=== PATIENT | female | born 1995 | race Caucasian/White ===

== ENCOUNTER 2017-11-02 21:59 | Inpatient (IN) | payer BC ==
[~2017-11-02] VITALS: Ht 160 cm; Wt 55.1 kg
[2017-11-02] MEDS ORDERED: REMICADE V100 MG/VIA IV (22:06)
[2017-11-02] MEDS ORDERED: OTREXUP15 MG/0.4 IM (22:07)
[2017-11-02 22:57] LABS: COLLECTION METHOD CLEAN CATCH
[2017-11-02 22:59] LABS: BASO % 0.3 % (0.0-2.0); EOS % 0.2 % (0-4.0); GRAN # 11.5 (1.4-6.5); GRAN % 83.4 % (42.2-75.2); HEMATOCRIT 45.2 % (37.0-47.0); HEMOGLOBIN 15.2 g/dl (12.5-16.0); LYMPH # 1.8 (1.2-3.4); LYMPH % 13.3 % (20.0-51.0); MEAN CELL VOLUME 91 fl (80.0-100.0); MEAN CORPUSCULAR HEMOGLOBIN 31 pg (27.0-31.0); MEAN CORPUSCULAR HGB CONC 34 g/dl (33.0-37.0); MEAN PLATELET VOLUME 8.7 fl (7.4-10.4); MONO # 0.3 (0.1-0.6); MONO % 2.4 % (1.7-9.3); PLATELET COUNT 386 K/mm3 (130-400); RED BLOOD COUNT 4.97 M/mm3 (4.10-5.30); REDCELL DISTRIBUTION WIDTH-CV 12.6 % (11.5-14.5)
[2017-11-02 23:04] LABS: MUCOUS Present /lpf; PH 5 (5-8); URINE APPEARANCE Hazy; URINE BACTERIA None Seen /hpf; URINE BILIRUBIN Negative (NEGATIVE); URINE BLOOD Negative (NEGATIVE); URINE COLOR Amber; URINE GLUCOSE Negative (NEGATIVE); URINE KETONE 2+ (NEGATIVE); URINE LEUKOCYTE ESTERASE 1+ (NEGATIVE); URINE NITRATE Negative (NEGATIVE); URINE PROTEIN(semi-quant) 2+ (NEGATIVE)
[2017-11-02 23:11] LABS: ALANINE AMINOTRANSFERASE 30 U/L (9-52); ALKALINE PHOSPHATASE 62 U/L (50-136); ANION GAP 15 mmol/L (7-16); AST,SGOT 27 U/L (15-37); BLOOD UREA NITROGEN 11 mg/dL (7-17); CALCIUM 10.1 mg/dL (8.4-10.2); CARBON DIOXIDE 24 mmol/L (22-30); CHLORIDE 104 mmol/L (98-107); CREATININE, serum 0.69 mg/dL (0.52-1.25); GLUCOSE 110 mg/dL (74-106); POTASSIUM 4.4 mmol/L (3.4-5.0); SODIUM 143 mmol/L (137-145); TOTAL PROTEIN 9.4 gm/dL (6.4-8.2)
[2017-11-02 23:17] LABS: C-REACTIVE PROTEIN < 0.5 mg/dL (0.0-0.9)
[2017-11-03] MEDS ORDERED: DEPO-PROVE400 MG/1 M IM (01:16)
[2017-11-03 01:29] VITALS: BP 123/78; PULSE 102; TEMP 97.3
[2017-11-03 08:00] VITALS: BP 111/82; PULSE 87; TEMP 97.7
[2017-11-03 13:00] VITALS: BP 106/88; PULSE 77; TEMP 98.8
[2017-11-03 15:41] VITALS: BP 109/56; PULSE 93; TEMP 98.2
[2017-11-03 19:50] VITALS: BP 118/56; PULSE 77; TEMP 98.7
[2017-11-04] VITALS (7 sets, daily range): BP systolic 107–127; BP diastolic 45–64; PULSE 72–94; TEMP 97.7–98.7
[2017-11-04 07:27] LABS: BASO % 0.2 % (0.0-2.0); GRAN # 3.4 (1.4-6.5); GRAN % 67.3 % (42.2-75.2); LYMPH # 1.5 (1.2-3.4); LYMPH % 29.3 % (20.0-51.0); MEAN CELL VOLUME 94 fl (80.0-100.0); MEAN CORPUSCULAR HGB CONC 33 g/dl (33.0-37.0); MEAN PLATELET VOLUME 9.4 fl (7.4-10.4); MONO # 0.1 (0.1-0.6); MONO % 2.8 % (1.7-9.3); RED BLOOD COUNT 3.63 M/mm3 (4.10-5.30); REDCELL DISTRIBUTION WIDTH-CV 12.9 % (11.5-14.5)
[2017-11-04 07:34] LABS: HEMOGLOBIN 11.2 g/dl (12.5-16.0); MEAN CORPUSCULAR HEMOGLOBIN 31 pg (27.0-31.0)
[2017-11-04 07:35] LABS: PLATELET COUNT 211 K/mm3 (130-400)
[2017-11-04 07:41] LABS: CREATININE, serum 0.6 mg/dL (0.52-1.25); POTASSIUM 3.3 mmol/L (3.4-5.0)
[2017-11-05 04:13] VITALS: BP 126/50; PULSE 72; TEMP 98.1
[2017-11-05 08:43] VITALS: BP 115/65; PULSE 58; TEMP 98.7
[2017-11-05 11:49] VITALS: BP 114/56; PULSE 83; TEMP 98.5
[2017-11-05 16:16] VITALS: BP 124/67; PULSE 99; TEMP 97.9
[2017-11-05 20:38] VITALS: BP 117/76; PULSE 78; TEMP 98.7
[2017-11-06] VITALS (8 sets, daily range): BP systolic 113–130; BP diastolic 54–76; PULSE 55–87; TEMP 98.1–99.1
[2017-11-07 06:09] VITALS: BP 114/69; PULSE 60; TEMP 98.3
[2017-11-07 06:57] LABS: HEMATOCRIT 33.3 % (37.0-47.0); HEMOGLOBIN 11.2 g/dl (12.5-16.0)
[2017-11-07 07:04] LABS: CALCIUM 8.2 mg/dL (8.4-10.2); CREATININE, serum 0.65 mg/dL (0.52-1.25)
[2017-11-07 07:22] LABS: POTASSIUM 2.7 mmol/L (3.4-5.0)
[2017-11-07 08:33] VITALS: BP 123/71; PULSE 63; TEMP 98.8
[2017-11-07 12:56] VITALS: BP 115/60; PULSE 90; TEMP 99.3
[2017-11-07 17:00] VITALS: BP 126/62; PULSE 81; TEMP 97.1
[2017-11-07 19:10] VITALS: BP 124/64; PULSE 85; TEMP 98.5
[2017-11-08 00:02] VITALS: BP 111/65; PULSE 71; TEMP 98.7
[2017-11-08 03:17] VITALS: BP 122/67; PULSE 66; TEMP 98.6
[2017-11-08 06:45] LABS: HEMATOCRIT 34.3 % (37.0-47.0); HEMOGLOBIN 11.5 g/dl (12.5-16.0)
[2017-11-08 07:14] LABS: ANION GAP 6 mmol/L (7-16); CALCIUM 8.4 mg/dL (8.4-10.2); CARBON DIOXIDE 30 mmol/L (22-30); CHLORIDE 103 mmol/L (98-107); CREATININE, serum 0.67 mg/dL (0.52-1.25); GLUCOSE 89 mg/dL (74-106); POTASSIUM 3.8 mmol/L (3.4-5.0); SODIUM 138 mmol/L (137-145)
[2017-11-08 07:19] LABS: BLOOD UREA NITROGEN < 2 mg/dL (7-17)
[2017-11-08 08:06] VITALS: BP 116/72; PULSE 56; TEMP 98.9
[2017-11-09 02:50] VITALS: BP 103/46; PULSE 75; TEMP 98.4
[2017-11-09 06:01] VITALS: BP 111/52; PULSE 70; TEMP 98.3
[2017-11-09 07:05] LABS: HEMATOCRIT 34.3 % (37.0-47.0); HEMOGLOBIN 11.4 g/dl (12.5-16.0)
[2017-11-09 07:19] LABS: CALCIUM 8.1 mg/dL (8.4-10.2); CREATININE, serum 0.58 mg/dL (0.52-1.25); POTASSIUM 3.5 mmol/L (3.4-5.0)
[2017-11-09 10:09] VITALS: BP 114/59; PULSE 73; TEMP 97.9
[2017-11-09 13:25] VITALS: BP 132/69; PULSE 84; TEMP 98.2
[2017-11-09 17:48] VITALS: BP 114/61; PULSE 71; TEMP 98.6
[2017-11-09 20:59] VITALS: BP 106/45; PULSE 92; TEMP 98
[2017-11-10 02:04] VITALS: BP 105/51; PULSE 68; TEMP 98.3
[2017-11-10 05:14] VITALS: BP 114/54; PULSE 70; TEMP 99.1
[2017-11-10 10:41] VITALS: BP 119/58; PULSE 83; TEMP 98.8
== END 2017-11-10 12:30 | disposition home or self-care (01) | DRG 330 ==
LOC: COL.ER 21:59 → MEDICAL 11-03 00:31 → SURG 11-08 12:45
PROVIDERS: Emergency Medicine; Surgery
PROC: 0DNM4ZZ Release Descending Colon, Percutaneous Endoscopic Approach (ICD-10-PCS; 2017-11-08)
PROC: 0DNB4ZZ Release Ileum, Percutaneous Endoscopic Approach (ICD-10-PCS; 2017-11-08)
PROC: 8E0W4CZ Robotic Assisted Procedure of Trunk Region, Percutaneous Endoscopic Approach (ICD-10-PCS; 2017-11-08)
PROC: 0DBH4ZZ Excision of Cecum, Percutaneous Endoscopic Approach (ICD-10-PCS; principal; 2017-11-08 09:30)
PROC: 0DBB4ZZ Excision of Ileum, Percutaneous Endoscopic Approach (ICD-10-PCS; 2017-11-08 09:30)
DX: K56.51 Intestinal adhesions [bands], with partial obstruction (principal); K50.90 Crohn's disease, unspecified, without complications; T81.52 Obstruction due to foreign body accidentally left in body following procedure; Y73.0 Diagnostic and monitoring gastroenterology and urology devices associated with adverse incidents
CPT/HCPCS: A4314; J0696; J1100; J1170; J1650; J1720; J1885; J1956; J2250; J2405; J2704; J3010; J7030; J7050; J7120; Q9967

== ENCOUNTER 2018-01-31 08:16 | Outpatient (CLI) | payer BC ==
[~2018-01-31] VITALS: Ht 160 cm; Wt 56.5 kg
[~2018-01-31 08:16] MED LIST: DEPO-PROVE400 MG/1 M IM; OTREXUP15 MG/0.4 IM; REMICADE V100 MG/VIA IV
[2018-01-31 09:15] LABS: HEMOGLOBIN 11.8 g/dl (12.5-16.0); MEAN CELL VOLUME 88 fl (80.0-100.0); MEAN CORPUSCULAR HEMOGLOBIN 28 pg (27.0-31.0); MEAN CORPUSCULAR HGB CONC 32 g/dl (33.0-37.0); MEAN PLATELET VOLUME 9.2 fl (7.4-10.4); PLATELET COUNT 308 K/mm3 (130-400); REDCELL DISTRIBUTION WIDTH-CV 12.2 % (11.5-14.5)
[2018-01-31 09:30] LABS: BILIRUBIN,TOTAL 0.2 mg/dL (0.0-1.0); CALCIUM 9.1 mg/dL (8.4-10.2); CREATININE, serum 0.64 mg/dL (0.52-1.25); POTASSIUM 4.2 mmol/L (3.4-5.0); TOTAL PROTEIN 8.3 gm/dL (6.4-8.2)
[2018-01-31 15:24] VITALS: BP 108/52; PULSE 83; TEMP 98
[2018-01-31 16:05] VITALS: BP 109/53; PULSE 91; TEMP 98.2
[2018-01-31 16:40] VITALS: BP 114/59; PULSE 83
[2018-01-31 17:10] VITALS: BP 102/62; PULSE 85; TEMP 98.1
[2018-01-31 17:25] VITALS: BP 117/68; PULSE 90; TEMP 98.4
== END 2018-01-31 18:01 | disposition home or self-care (01) ==
LOC: EUO 08:16
PROVIDERS: Internal Medicine Gastroenterology
DX: K50.90 Crohn's disease, unspecified, without complications (principal)
CPT/HCPCS: J1200; J2920; J7050; Q5103

== ENCOUNTER 2018-05-18 14:27 | Outpatient (CLI) | payer BC ==
[~2018-05-18] VITALS: Ht 160 cm; Wt 52.4 kg
[2018-05-18 14:53] LABS: HEMOGLOBIN 10.7 g/dl (12.5-16.0); MEAN CELL VOLUME 82 fl (80.0-100.0); MEAN CORPUSCULAR HEMOGLOBIN 26 pg (27.0-31.0); MEAN CORPUSCULAR HGB CONC 31 g/dl (33.0-37.0); MEAN PLATELET VOLUME 8.5 fl (7.4-10.4); PLATELET COUNT 375 K/mm3 (130-400); REDCELL DISTRIBUTION WIDTH-CV 15.9 % (11.5-14.5)
[2018-05-18 14:54] LABS: HEMATOCRIT 34.5 % (37.0-47.0)
[2018-05-18 15:13] LABS: ALBUMIN 3.5 gm/dL (3.5-5.0); BILIRUBIN,TOTAL 0.2 mg/dL (0.0-1.0); CALCIUM 8.3 mg/dL (8.4-10.2); CREATININE, serum 0.69 mg/dL (0.52-1.25); TOTAL PROTEIN 7.6 gm/dL (6.4-8.2)
[2018-05-18 15:25] LABS: POTASSIUM 2.8 mmol/L (3.4-5.0)
[2018-05-18] MEDS ORDERED: MULTI VITAMINS1 TAB PO (17:42)
[2018-05-18 17:44] VITALS: BP 113/58; PULSE 87; TEMP 97.4
[2018-05-18 17:55] VITALS: BP 117/64; PULSE 86; TEMP 97.4
[2018-05-18 18:25] VITALS: BP 105/53; PULSE 87; TEMP 98.1
[2018-05-18 18:55] VITALS: BP 115/62; PULSE 85; TEMP 98.4
[2018-05-18 19:25] VITALS: BP 118/50; PULSE 97; TEMP 98.4
== END 2018-05-18 19:30 | disposition home or self-care (01) ==
LOC: EUO 14:27
PROVIDERS: Internal Medicine Gastroenterology
DX: K50.90 Crohn's disease, unspecified, without complications (principal); Z79.899 Other long term (current) drug therapy
CPT/HCPCS: J1200; J2930; J7050; Q5103

== ENCOUNTER 2018-07-19 13:30 | Outpatient (RCR) | payer BC ==
[2018-07-10 13:54] VITALS: BP 111/63; PULSE 88; TEMP 97.7
[2018-07-13 12:10] VITALS: BP 112/57; PULSE 95; TEMP 98.3
[2018-07-13 12:19] LABS: MEAN CELL VOLUME 84 fl (80.0-100.0); MEAN CORPUSCULAR HGB CONC 31 g/dl (33.0-37.0); MEAN PLATELET VOLUME 9.3 fl (7.4-10.4); PLATELET COUNT 318 K/mm3 (130-400); RED BLOOD COUNT 3.74 M/mm3 (4.10-5.30)
[2018-07-13 12:20] LABS: HEMATOCRIT 31.5 % (37.0-47.0); HEMOGLOBIN 9.7 g/dl (12.5-16.0); MEAN CORPUSCULAR HEMOGLOBIN 26 pg (27.0-31.0)
[2018-07-13 12:40] LABS: ALBUMIN 3.8 gm/dL (3.5-5.0); BILIRUBIN,TOTAL 0.2 mg/dL (0.0-1.0); CALCIUM 8.6 mg/dL (8.4-10.2); CREATININE, serum 0.66 mg/dL (0.52-1.25); POTASSIUM 3.3 mmol/L (3.4-5.0); TOTAL PROTEIN 7.5 gm/dL (6.4-8.2)
[2018-07-13 13:30] VITALS: BP 111/57; PULSE 91; TEMP 98.8
[2018-07-13 14:00] VITALS: BP 109/60; PULSE 105; TEMP 98.9
[2018-07-13 14:30] VITALS: BP 99/55; PULSE 80; TEMP 98.5
[2018-07-13 15:00] VITALS: BP 98/55; PULSE 94; TEMP 99.1
[2018-07-13 15:30] VITALS: BP 98/51; PULSE 92; TEMP 98.7
[2018-07-16 13:30] VITALS: BP 108/64; PULSE 103; TEMP 98.3
[~2018-07-19] VITALS: Ht 160 cm; Wt 54.0 kg
[~2018-07-19 13:30] MED LIST changes: +INFLECTRA100 MG IV; +MULTI VITAMINS1 TAB PO
[2018-07-19 13:52] VITALS: BP 111/76; PULSE 89; TEMP 98.6
[2018-07-19] MEDS ORDERED: DOXYCYCLINE 10100 MG PO (13:52)
== END 2018-07-19 14:51 | disposition home or self-care (01) ==
LOC: EUO 13:30
PROVIDERS: Internal Medicine Gastroenterology
DX: K50.90 Crohn's disease, unspecified, without complications (principal)
CPT/HCPCS: J1200; J2916; J2930; J7050; Q5103

== ENCOUNTER 2018-08-14 10:49 | Outpatient (CLI) | payer BC ==
[~2018-08-14] VITALS: Ht 160 cm; Wt 54.4 kg
[~2018-08-14 10:49] MED LIST changes: +DOXYCYCLINE 10100 MG PO
[2018-08-14 11:40] VITALS: BP 104/62; PULSE 85; TEMP 98.4
[2018-08-14 14:35] VITALS: BP 105/65; PULSE 88
== END 2018-08-14 15:09 | disposition home or self-care (01) ==
LOC: COL.CAR 10:49
DX: R55 Syncope and collapse (principal); I47.1 Supraventricular tachycardia; D64.9 Anemia, unspecified; K50.90 Crohn's disease, unspecified, without complications; E03.9 Hypothyroidism, unspecified; D72.0 Genetic anomalies of leukocytes; Z88.0 Allergy status to penicillin; Z82.5 Family history of asthma and other chronic lower respiratory diseases; Z82.49 Family history of ischemic heart disease and other diseases of the circulatory system; Z83.3 Family history of diabetes mellitus; Z80.0 Family history of malignant neoplasm of digestive organs; Z82.61 Family history of arthritis

== ENCOUNTER 2018-09-06 13:20 | Outpatient (CLI) | payer BC ==
[~2018-09-06] VITALS: Ht 160 cm; Wt 54.9 kg
[2018-09-06 13:47] LABS: HEMATOCRIT 41.8 % (37.0-47.0); HEMOGLOBIN 13.5 g/dl (12.5-16.0); MEAN CELL VOLUME 90 fl (80.0-100.0); MEAN CORPUSCULAR HEMOGLOBIN 29 pg (27.0-31.0); MEAN CORPUSCULAR HGB CONC 32 g/dl (33.0-37.0); MEAN PLATELET VOLUME 9.3 fl (7.4-10.4); PLATELET COUNT 263 K/mm3 (130-400); RED BLOOD COUNT 4.67 M/mm3 (4.10-5.30)
[2018-09-06 14:12] LABS: ALBUMIN 4.2 gm/dL (3.5-5.0); BILIRUBIN,TOTAL 0.6 mg/dL (0.0-1.0); CALCIUM 9.3 mg/dL (8.4-10.2); CREATININE, serum 0.76 mg/dL (0.52-1.25); POTASSIUM 3.5 mmol/L (3.4-5.0); TOTAL PROTEIN 7.8 gm/dL (6.4-8.2)
[2018-09-06 14:52] VITALS: BP 119/70; PULSE 85; TEMP 98.4
[2018-09-06 15:20] VITALS: BP 109/60; PULSE 81
[2018-09-06 15:45] VITALS: BP 102/47; PULSE 75; TEMP 98.6
[2018-09-06 16:15] VITALS: BP 108/51; BP 109/56; PULSE 76; PULSE 93; TEMP 98.5
[2018-09-06 16:45] VITALS: BP 108/51; PULSE 99
[2018-09-06 17:24] VITALS: BP 102/54; PULSE 85; TEMP 98.4
== END 2018-09-06 17:27 | disposition home or self-care (01) ==
LOC: EUO 13:20
PROVIDERS: Internal Medicine Gastroenterology
DX: K50.90 Crohn's disease, unspecified, without complications (principal); Z79.899 Other long term (current) drug therapy
CPT/HCPCS: J1200; J2930; J7050; Q5103

== ENCOUNTER 2018-11-01 12:54 | Outpatient (CLI) | payer BC ==
[~2018-11-01] VITALS: Ht 160 cm; Wt 55.5 kg
[2018-11-01 13:29] LABS: HEMOGLOBIN 12.8 g/dl (12.5-16.0); MEAN CELL VOLUME 93 fl (80.0-100.0); MEAN CORPUSCULAR HEMOGLOBIN 31 pg (27.0-31.0); MEAN CORPUSCULAR HGB CONC 33 g/dl (33.0-37.0); MEAN PLATELET VOLUME 9.3 fl (7.4-10.4); PLATELET COUNT 273 K/mm3 (130-400); RED BLOOD COUNT 4.19 M/mm3 (4.10-5.30); REDCELL DISTRIBUTION WIDTH-CV 13.2 % (11.5-14.5)
[2018-11-01 13:37] LABS: ALBUMIN 4.3 gm/dL (3.5-5.0); BILIRUBIN,TOTAL 0.8 mg/dL (0.0-1.0); CALCIUM 9.3 mg/dL (8.4-10.2); CREATININE, serum 0.73 mg/dL (0.52-1.25); POTASSIUM 3.4 mmol/L (3.4-5.0); TOTAL PROTEIN 7.9 gm/dL (6.4-8.2)
[2018-11-01 14:26] VITALS: BP 112/62; PULSE 73; TEMP 98
[2018-11-01 14:56] VITALS: BP 111/58; PULSE 80
[2018-11-01 15:20] VITALS: BP 106/57; PULSE 75
[2018-11-01 15:50] VITALS: BP 104/57; PULSE 77
[2018-11-01 16:20] VITALS: BP 110/61; PULSE 75
[2018-11-01 16:40] VITALS: BP 115/60; PULSE 97; TEMP 98.5
== END 2018-11-01 16:30 | disposition home or self-care (01) ==
LOC: EUO 12:54
PROVIDERS: Internal Medicine Gastroenterology
DX: K50.90 Crohn's disease, unspecified, without complications (principal); Z79.899 Other long term (current) drug therapy
CPT/HCPCS: J1200; J2930; J7050; Q5103

== ENCOUNTER 2018-12-27 11:20 | Outpatient (CLI) | payer BC ==
[2018-12-27 11:44] LABS: HEMATOCRIT 36.6 % (37.0-47.0); HEMOGLOBIN 11.7 g/dl (12.5-16.0); MEAN CELL VOLUME 94 fl (80.0-100.0); MEAN CORPUSCULAR HEMOGLOBIN 30 pg (27.0-31.0); MEAN CORPUSCULAR HGB CONC 32 g/dl (33.0-37.0); MEAN PLATELET VOLUME 9.2 fl (7.4-10.4); PLATELET COUNT 265 K/mm3 (130-400); RED BLOOD COUNT 3.91 M/mm3 (4.10-5.30); REDCELL DISTRIBUTION WIDTH-CV 12.4 % (11.5-14.5)
[2018-12-27 11:53] LABS: BILIRUBIN,TOTAL 0.6 mg/dL (0.0-1.0); CALCIUM 9.1 mg/dL (8.4-10.2); CREATININE, serum 0.77 (0.52-1.25); POTASSIUM 3.2 mmol/L (3.4-5.0); TOTAL PROTEIN 7.6 gm/dL (6.4-8.2)
[2018-12-27] MEDS ORDERED: UCERIS (12:41)
[2018-12-27 13:00] VITALS: BP 107/61; PULSE 78; TEMP 98.8
[2018-12-27 13:30] VITALS: BP 103/61; PULSE 78
[2018-12-27 14:00] VITALS: BP 102/62; PULSE 78
[2018-12-27 14:30] VITALS: BP 105/58; PULSE 70
[2018-12-27 15:00] VITALS: BP 98/56; PULSE 72
[2018-12-27 16:00] VITALS: BP 108/62; PULSE 84
== END 2018-12-27 16:20 | disposition home or self-care (01) ==
LOC: EUO 11:20
PROVIDERS: Internal Medicine Gastroenterology
DX: K50.90 Crohn's disease, unspecified, without complications (principal); Z79.899 Other long term (current) drug therapy
CPT/HCPCS: J1200; J2920; J7050; Q5103

== ENCOUNTER 2019-02-12 11:28 | Outpatient (CLI) | payer BC ==
[~2019-02-12] VITALS: Ht 160 cm; Wt 57.0 kg
[~2019-02-12 11:28] MED LIST changes: +UCERIS
[2019-02-12 12:30] LABS: HEMATOCRIT 37.4 % (37.0-47.0); HEMOGLOBIN 11.5 g/dl (12.5-16.0); MEAN CELL VOLUME 91 fl (80.0-100.0); MEAN CORPUSCULAR HEMOGLOBIN 28 pg (27.0-31.0); MEAN CORPUSCULAR HGB CONC 31 g/dl (33.0-37.0); MEAN PLATELET VOLUME 9.3 fl (7.4-10.4); PLATELET COUNT 322 K/mm3 (130-400); RED BLOOD COUNT 4.13 M/mm3 (4.10-5.30); REDCELL DISTRIBUTION WIDTH-CV 12.9 % (11.5-14.5)
[2019-02-12 12:42] LABS: ALBUMIN 4.1 gm/dL (3.5-5.0); BILIRUBIN,TOTAL 0.4 mg/dL (0.0-1.0); CALCIUM 8.9 mg/dL (8.4-10.2); CREATININE, serum 0.63 (0.52-1.25); POTASSIUM 3.7 mmol/L (3.4-5.0); TOTAL PROTEIN 8.2 gm/dL (6.4-8.2)
[2019-02-12 12:48] LABS: MAGNESIUM 1.8 mg/dL (1.6-2.3)
[2019-02-12 13:15] VITALS: BP 128/68; PULSE 93; TEMP 97.2
[2019-02-12 13:30] VITALS: BP 120/62; PULSE 83; TEMP 97.2
[2019-02-12 14:11] VITALS: BP 115/63; PULSE 89; TEMP 97.2
[2019-02-12 14:45] VITALS: BP 117/62; PULSE 88; TEMP 97.8
[2019-02-12 15:15] VITALS: BP 112/64; PULSE 82; TEMP 97.8
== END 2019-02-12 15:31 | disposition home or self-care (01) ==
LOC: EUO 11:28
PROVIDERS: Internal Medicine Gastroenterology
DX: K50.90 Crohn's disease, unspecified, without complications (principal); Z79.899 Other long term (current) drug therapy
CPT/HCPCS: J1200; J2930; J7050; Q5103

== ENCOUNTER 2019-03-26 13:16 | Outpatient (CLI) | payer BC ==
[~2019-03-26] VITALS: Ht 160 cm; Wt 56.0 kg
[2019-03-26 13:57] LABS: HEMOGLOBIN 10.9 g/dl (12.5-16.0); MEAN CELL VOLUME 85 fl (80.0-100.0); MEAN CORPUSCULAR HEMOGLOBIN 26 pg (27.0-31.0); MEAN CORPUSCULAR HGB CONC 31 g/dl (33.0-37.0); MEAN PLATELET VOLUME 9.7 fl (7.4-10.4); PLATELET COUNT 312 K/mm3 (130-400); RED BLOOD COUNT 4.15 M/mm3 (4.10-5.30); REDCELL DISTRIBUTION WIDTH-CV 13.9 % (11.5-14.5)
[2019-03-26 13:58] LABS: HEMATOCRIT 35.3 % (37.0-47.0)
[2019-03-26 14:07] LABS: CALCIUM 8.8 mg/dL (8.4-10.2); CREATININE, serum 0.7 (0.52-1.25); POTASSIUM 3.6 mmol/L (3.4-5.0)
[2019-03-26 14:42] VITALS: BP 101/58; PULSE 83; TEMP 98.1
[2019-03-26 15:10] VITALS: BP 97/53; PULSE 74
[2019-03-26 15:36] VITALS: BP 94/51; PULSE 73; TEMP 98.2
[2019-03-26 16:17] VITALS: BP 92/49; PULSE 79; TEMP 98.3
[2019-03-26 17:01] VITALS: BP 100/62; PULSE 87; TEMP 98.6
--- NOTE | 2019-03-26 17:12 | NUR ---
per pt she is moving and will receive next infusion at new location.
== END 2019-03-26 17:12 | disposition home or self-care (01) ==
LOC: EUO 13:16
PROVIDERS: Internal Medicine Gastroenterology
DX: K50.90 Crohn's disease, unspecified, without complications (principal)
CPT/HCPCS: J1200; J2930; J7050; Q5103